=== PATIENT | female | born 1980 | race Caucasian/White ===

== ENCOUNTER 2017-03-02 12:05 | Emergency (ER) | payer OTHER ==
[~2017-03-02] VITALS: Ht 160 cm; Wt 74.8 kg
[2017-03-02 13:59] LABS: URINE SOURCE CLEAN CATCH
[2017-03-02 14:03] LABS: URINE APPEARANCE CLEAR; URINE BILIRUBIN NEG (NEG); URINE BLOOD NEG (NEG); URINE COLOR YELLOW; URINE GLUCOSE NEG (NEG); URINE KETONE NEG (NEG); URINE LEUKOCYTE ESTERASE NEG (NEG); URINE NITRATE NEG (NEG); URINE PH 5.5 (5-8); URINE PROTEIN NEG (NEG); URINE SPECIFIC GRAVITY 1.012 (1.003-1.035); URINE UROBILINOGEN 0.2 MG/DL (NEG)
[2017-03-02 14:05] LABS: CULTURE INDICATED? NO
== END 2017-03-02 14:26 | disposition home or self-care (01) ==
LOC: CED 12:05 → CFTX 12:05
PROVIDERS: Physician Assistant
DX: J32.0 Chronic maxillary sinusitis (principal); J32.1 Chronic frontal sinusitis; R10.9 Unspecified abdominal pain
CPT/HCPCS: 81003; 84703; 99283